=== PATIENT | male | born 1980 | race Caucasian/White ===

== ENCOUNTER 2019-12-16 15:54 | Emergency (ER) | payer OTHER ==
[2019-12-16 16:04] VITALS: BP 158/100
[2019-12-16] MEDS ORDERED: TETANUS/DIPHTHERIA/PERTUSSIS 0.5 ML SYRINGE IM ONE (16:05)
--- NOTE | 2019-12-16 16:17 | ED Physician Documentation ---
History of Present Illness - Stated complaint Stated Complaint: L FOOT PUNCTURE - Chief complaint Chief Complaint: General - History obtained from History obtained from: Patient - History of Present Illness Timing: Yesterday Pain level max: 0 Pain level now: 0 - Additonal information Additional information: Patient was wearing slippers yesterday when he accidentally stepped on a nail. He removed the nail yesterday. No pain. No redness. No swelling. Last tetanus was 2003. Nothing makes it better or worse Review of Systems Constitutional: denies: Fever, Chills Skin: denies: Rash PD PAST MEDICAL HISTORY - Past Medical History Past Medical History: No - Allergies Allergies/Adverse Reactions: Allergies Allergy/AdvReac Type Severity Reaction Status Date / Time No Known Drug Allergies Allergy Verified 12/16/19 16:10 - Social History Does the pt smoke?: No Smoking Status: Never smoker Does the pt drink ETOH?: Yes Does the pt have substance abuse?: No - Immunizations Immunizations are current?: No PD ED PE NORMAL - Vitals Vital signs reviewed: Yes - General General: Alert and oriented X 3, No acute distress - HEENT HEENT: Moist mucous membranes - Derm Derm: Warm and dry - Extremities Extremities: Other (Puncture wound to the plantar aspect of the left foot, near the second MTP joint. Neurovascular intact. No signs of infection.) - Neuro Neuro: Alert and oriented X 3 Results - Vitals Vitals: Vital Signs - 24 hr 12/16/19 15:59 Temperature 36.8 C Heart Rate 100 Respiratory 16 Rate Blood Pressure 158/100 H O2 Saturation 100 Oxygen O2 Source Room air PD MEDICAL DECISION MAKING - ED course Complexity details: considered differential, d/w patient ED course: No evidence of foreign body. Patient states the nail came whole. Tdap given. We did discuss prophylactic antibiotics, patient is comfortable monitoring at home and will return if there is signs of infection. Patient counseled regarding signs and symptoms for which I believe and urgent re-evaluation would be necessary. Patient with good understanding of and agreement to plan and is comfortable going home at this time This document was made in part using voice recognition software. While efforts are made to proofread this document, sound alike and grammatical errors may occur. Departure - Departure Disposition: 01 Home, Self Care Clinical Impression: Puncture wound of plantar aspect of left foot Qualifiers: Encounter type: initial encounter Qualified Code(s): S91.332A - Puncture wound without foreign body, left foot, initial encounter Condition: Good Instructions: ED Wound Puncture General Follow-Up: Your,doctor in 1 week [Other] Comments: Keep the wound clean. Return if you notice redness, swelling or drainage from the wound. You should have a wound check with your doctor later this week to ensure it is healing properly.
== END 2019-12-16 16:22 | disposition home or self-care (01) ==
LOC: ED 15:54
DX: S91.332A Puncture wound without foreign body, left foot, initial encounter (principal); W45.0XXA Nail entering through skin, initial encounter
CPT/HCPCS: 90471; 99282; 99283

== ENCOUNTER 2020-06-20 16:47 | Emergency (ER) | payer OTHER ==
--- NOTE | 2020-06-20 17:01 | ED Physician Documentation ---
PD HPI ABD PAIN - Stated complaint Stated Complaint: ABD PX/ - Chief complaint Chief Complaint: Abd Pain - History obtained from History obtained from: Patient - History of Present Illness Timing - onset: How many days ago (2-3) Timing - duration: Days (2-3) Timing - details: Abrupt onset (just after eating some spicy food.), Still present Quality: Cramping, Aching, Pain Location: Epigastric Radiation: No: Chest, Lower back Improved by: No: Vomiting Worsened by: Eating Associated symptoms: Nausea, Vomiting, Loss of appetite. No: Fever, Hematemesis, Diarrhea, Constipation, Dysuria Similar symptoms before: Has not had sx before Recently seen: Not recently seen Review of Systems Constitutional: denies: Fever, Chills, Myalgias Nose: reports: Rhinorrhea / runny nose. denies: Congestion Throat: denies: Sore throat Respiratory: denies: Cough GI: reports: Abdominal Pain (epigastric area), Nausea, Vomiting (with any attempt at PO intake.) Skin: denies: Rash, Lesions Musculoskeletal: denies: Neck pain, Back pain PD PAST MEDICAL HISTORY - Past Medical History Cardiovascular: None Respiratory: None Neuro: None Endocrine/Autoimmune: None GI: None - Present Medications Home Medications: Ambulatory Orders Medication Instructions Recorded Confirmed Lidocaine Viscous 2% [Xylocaine 5 ml PO Q4H PRN #100 ml 06/20/20 Viscous 2%] Ondansetron Odt [Zofran] 4 mg TL Q6H PRN #15 tablet 06/20/20 - Allergies Allergies/Adverse Reactions: Allergies Allergy/AdvReac Type Severity Reaction Status Date / Time No Known Drug Allergies Allergy Verified 12/16/19 16:10 - Social History Does the pt smoke?: No Smoking Status: Never smoker Does the pt drink ETOH?: Yes Does the pt have substance abuse?: No - Immunizations Immunizations are current?: No PD ED PE NORMAL - Vitals Vital signs reviewed: Yes - General General: Alert and oriented X 3, Well developed/nourished - HEENT HEENT: PERRL (nonicteric) - Neck Neck: Supple, no meningeal sign, No adenopathy - Cardiac Cardiac: RRR, No murmur - Respiratory Respiratory: Clear bilaterally - Abdomen Abdomen: Normal bowel sounds, Soft, Non distended, No organomegaly, Other (tender epigastric area with local guarding. ) - Derm Derm: Normal color, Warm and dry - Extremities Extremities: No tenderness to palpate, Normal ROM s pain, No edema, No calf tenderness / cord - Neuro Neuro: Alert and oriented X 3, No motor deficit, Normal speech Results - Vitals Vitals: Vital Signs - 24 hr 06/20/20 06/20/20 06/20/20 16:52 18:00 18:50 Temperature 36.9 C Heart Rate 110 H 91 90 Respiratory 16 18 18 Rate Blood Pressure 146/96 H 133/98 H 128/97 H O2 Saturation 97 100 100 06/20/20 19:41 Temperature 36.9 C Heart Rate 81 Respiratory 16 Rate Blood Pressure 128/68 O2 Saturation 100 Oxygen O2 Source Room air - Labs Labs: Laboratory Tests 06/20/20 06/20/20 06/20/20 17:14 17:14 17:43 WBC 12.8 H RBC 5.11 Hgb 16.5 Hct 46.5 MCV 91.0 MCH 32.3 H MCHC 35.5 RDW 12.7 Plt Count 332 MPV 9.4 Neut # (Auto) Not Reportable Lymph # (Auto) Not Reportable [place] # (Auto) Not Reportable Eos # (Auto) Not Reportable Baso # (Auto) Not Reportable Absolute Nucleated RBC Not Reportable Total Counted 100 Band Neuts % (Manual) 0 Abnorm Lymph % (Manual) 0 Nucleated RBC % Not Reportable Neutrophils # (Manual) 9.0 H Lymphocytes # (Manual) 2.0 Monocytes # (Manual) 0.1 Eosinophils # (Manual) 1.7 H Basophils # (Manual) 0.0 Differential Comment MANUAL DIFFERENTIAL Manual Slide Review Indicated WBC Morphology NORMAL APPEARANCE Platelet Estimate NORMAL (130-450,000) Platelet Morphology NORMAL APPEARANCE RBC Morph Micro Appear NORMAL APPEARANCE Sodium 139 Potassium 3.8 Chloride 104 Carbon Dioxide 22 Anion Gap 13.0 BUN 12 Creatinine 1.1 Estimated GFR (MDRD) 74 L Glucose 105 H Calcium 10.0 Total Bilirubin 0.6 AST 20 ALT 29 Alkaline Phosphatase 83 Total Protein 7.9 Albumin 4.8 Globulin 3.1 Albumin/Globulin Ratio 1.5 Lipase 27 Urine Color YELLOW Urine Clarity CLEAR Urine pH 8.0 H Ur Specific [place] 1.020 Urine Protein NEGATIVE Urine Glucose (UA) NEGATIVE Urine Ketones NEGATIVE Urine Occult Blood NEGATIVE Urine Nitrite NEGATIVE Urine Bilirubin NEGATIVE Urine Urobilinogen 0.2 (NORMAL) Ur Leukocyte Esterase NEGATIVE Ur Microscopic Review NOT INDICATED Urine Culture Comments NOT INDICATED - Rads (name of study) abd CT with oral contrast Radiology: Prelim report reviewed (no acute process. Contrast goes through to small bowel. ), See rad report PD MEDICAL DECISION MAKING - ED course Complexity details: reviewed results, re-evaluated patient (able to take PO better and not vomiting. minimal nausea. ), considered differential (consider esophageal FB with onset with eating and vomiting of any attempted PO. Also consider gastritis/ulcer, or gastric outlet obstruction, SBO, pancreatitis, etc. ), d/w patient Departure - Departure Disposition: Home, Self Care Clinical Impression: Nausea and vomiting Qualifiers: Vomiting type: unspecified Vomiting Intractability: non-intractable Qualified Code(s): R11.2 - Nausea with vomiting, unspecified Acute gastritis Qualifiers: Gastritis type: unspecified gastritis Gastritis bleeding: without bleeding Qualified Code(s): K29.00 - Acute gastritis without bleeding Condition: Stable Record reviewed to determine appropriate education?: Yes Instructions: ED Nausea Vomiting Follow-Up: GLADYS CHAIREZ, MSN, PH[employer] ENGRAVER [Primary Care Provider] - Prescriptions: Lidocaine Viscous 2% [Xylocaine Viscous 2%] 5 ml PO Q4H PRN #100 ml PRN Reason: Pain Ondansetron Odt [Zofran] 4 mg TL Q6H PRN #15 tablet PRN Reason: Nausea / Vomiting Comments: Small frequent fluids and bland food. Avoid caffeine, alcohol, NSAIDs, spicy food for a week or so. Use Tylenol if needed for pains. Continue your Pepcid [id number] medicine. Use this twice daily. Add ondansetron if needed for nausea and vomiting. If needed for stomach pains, you can use antacid such as Maalox or Mylanta and if needed add in some lidocaine with it. Your CT scan and blood tests do not show other significant problems. I presume you have an irritated stomach (gastritis). This should improve with the above measures over the next couple of days. Recheck if not better in that timeframe and return sooner if worse. Discharge Date/Time: 06/20/20 19:41
[2020-06-20] MEDS ORDERED: SODIUM CHLORIDE 0.9% 1,000 ML IV STA (17:23)
[2020-06-20] MEDS ORDERED: FAMOTIDINE 20 MG/2 ML SYRINGE IVP STA (17:23)
[2020-06-20] MEDS ORDERED: ONDANSETRON 4 MG/2 ML VIAL IVP STA (17:23)
[2020-06-20 17:34] LABS: HGB - HEMOGLOBIN 16.5 g/dL (14.0-18.0); RED CELL DISTRIBUTION WIDTH 12.7 % (12.0-15.0)
[2020-06-20 17:38] LABS: ALBUMIN 4.8 g/dL (3.2-5.5); ALBUMIN/GLOBULIN RATIO 1.5 (1.0-2.2); BILIRUBIN,TOTAL 0.6 mg/dL (0.2-1.0); CREATININE 1.1 mg/dL (0.6-1.2); TOTAL PROTEIN 7.9 g/dL (6.7-8.2)
[2020-06-20] MEDS ORDERED: IOVERSOL 320 100 ML VIAL IVP ONE ×2 (17:40→19:30)
[2020-06-20] MEDS ORDERED: IOVERSOL 320 50 ML VIAL ONE (17:40)
[2020-06-20 17:48] LABS: BILIRUBIN,URINE NEGATIVE (NEGATIVE); GLUCOSE, URINE (UA) NEGATIVE (NEGATIVE); KETONES,URINE (UA) NEGATIVE (NEGATIVE); LEUKOCYTE ESTERASE, URINE NEGATIVE (NEGATIVE); NITRITE,URINE NEGATIVE (NEGATIVE); OCCULT BLOOD,URINE NEGATIVE (NEGATIVE); PROTEIN,URINE NEGATIVE (NEGATIVE); UROBILINOGEN,URINE 0.2 (NORMAL) E.U./dL (NORMAL)
[2020-06-20 17:50] LABS: BASOPHILS % (AUTO) 0.8 %; EOSINOPHILS % (AUTO) 9.2 %; LYMPHOCYTES % (AUTO) 17.9 %; MEAN CORPUSCULAR HEMOGLOBIN 32.3 pg (27.0-31.0); MEAN CORPUSCULAR HGB CONC 35.5 g/dL (32.0-36.0); MEAN PLATELET VOLUME 9.4 fL (7.4-11.4); MONOCYTES % (AUTO) 5.1 %; NEUTROPHILS % (AUTO) 66.5 %; PLT - PLATELET COUNT 332 10^3/uL (130-450); RED BLOOD COUNT 5.11 10^6/uL (4.70-6.10); WHITE BLOOD COUNT 12.8 x10^3/uL (4.8-10.8)
[2020-06-20 17:52] LABS: CLARITY,URINE CLEAR (CLEAR)
[2020-06-20 17:54] LABS: ABNORMAL LYMPHS % (MANUAL) 0 %; BAND NEUTROPHILS % (MANUAL) 0 %
[2020-06-20 18:13] LABS: DIFFERENTIAL COMMENT MANUAL DIFFERENTIAL; EOSINOPHILS # (MANUAL) 1.7 10^3/uL (0-0.7); LYMPHOCYTES % (MANUAL) 16 %; MONOCYTES # (MANUAL) 0.1 10^3/uL (0.0-1.0); PLATELET ESTIMATE, MANUAL NORMAL (130-450,000) (NORMAL); PLATELET MORPHOLOGY NORMAL APPEARANCE (NORMAL); RBC MORPHOLOGY (MULTIPLE) NORMAL APPEARANCE (NORMAL)
--- NOTE | 2020-06-20 19:04 | CT Report ---
PROCEDURE: Abdomen/Pelvis W INDICATIONS: upper abd pain and vomiting with eating CONTRAST: IV CONTRAST: Optiray 320 ml: 100 PO CONTRAST: Optiray 320 ml50 TECHNIQUE: After the administration of oral and IV contrast, 5 mm thick sections acquired from the diaphragms to the symphysis. 5 mm thick coronal and sagittal reformats were acquired. For radiation dose reducti on, the following was used: automated exposure control, adjustment of mA and/or kV according to janna ent size. COMPARISON: None. FINDINGS: Image quality: Excellent. ABDOMEN: Lung bases: Lung bases are clear. Heart size is normal. Solid organs: Liver is enlarged with steatosis. The spleen is normal in size and enhancement. Gallb ladder is unremarkable Biliary system is non dilated. Pancreas enhances normally. No adrenal nodul es. Kidneys demonstrate normal size and enhancement, without hydronephrosis. Peritoneum and bowel: Bowel loops demonstrate normal areas of fluid-filled small bowel loops.. No f ree fluid or air. Nodes and vessels: No retroperitoneal or mesenteric adenopathy by size criteria. Aorta and inferior vena cava are normal in size. Miscellaneous: No ventral hernias. PELVIS: Genitourinary: Bladder wall thickness is normal. Miscellaneous: Bilateral fat-containing inguinal hernias. Bones: No suspicious bony lesions. No vertebral body compression fractures. IMPRESSION: 1. Minimal appearance of scattered fluid-filled small bowel loops in a nonspecific pattern. This coul d be secondary to vomiting. No gross obstruction is identified. 2. Hepatomegaly with steatosis. Reviewed by: Laurence Adorno MD on 06/20/2020 7:02 PM PST Approved by: Laurence Adorno MD on 06/20/2020 7:02 PM PST Station ID: [id number]
[2020-06-20] MEDS ORDERED: LIDOCAINE VISCOUS 2% 15 ML UDC MM STA (19:22)
[2020-06-20] MEDS ORDERED: MAG HYDROX/AL HYDROX/SIMETH 30 ML UDC PO STA (19:22)
[2020-06-20] MEDS ORDERED: ACETAMINOPHEN 325 MG TABLET PO STA (19:24)
[2020-06-20 19:43] VITALS: BP 128/68
== END 2020-06-20 19:41 | disposition home or self-care (01) ==
LOC: ED 16:47
DX: K29.00 Acute gastritis without bleeding (principal); R11.2 Nausea with vomiting, unspecified
CPT/HCPCS: 36415; 74177; 80053; 81003; 83690; 85025; 96374; 99284; A9270; Q9967; 81001; 87086

== ENCOUNTER 2020-12-20 19:48 | Emergency (ER) | payer OTHER ==
[2020-12-20 20:45] LABS: BASOPHILS % (AUTO) 0.9 %; EOSINOPHILS % (AUTO) 16.9 %; HCT - HEMATOCRIT 46.3 % (42.0-52.0); HGB - HEMOGLOBIN 15.9 g/dL (14.0-18.0); LYMPHOCYTES % (AUTO) 22.4 %; MEAN CORPUSCULAR HEMOGLOBIN 31.2 pg (27.0-31.0); MEAN CORPUSCULAR HGB CONC 34.3 g/dL (32.0-36.0); MEAN CORPUSCULAR VOLUME 90.8 fL (80.0-94.0); MEAN PLATELET VOLUME 9.4 fL (7.4-11.4); NEUTROPHILS % (AUTO) 54.5 %; PLT - PLATELET COUNT 309 10^3/uL (130-450); RED CELL DISTRIBUTION WIDTH 12.3 % (12.0-15.0); WHITE BLOOD COUNT 9.2 x10^3/uL (4.8-10.8)
[2020-12-20 20:53] LABS: ABNORMAL LYMPHS % (MANUAL) 0 %
[2020-12-20 20:54] LABS: ALBUMIN 4.9 g/dL (3.2-5.5); ALBUMIN/GLOBULIN RATIO 1.9 (1.0-2.2); BILIRUBIN,TOTAL 0.5 mg/dL (0.2-1.0); CALCIUM 10.1 mg/dL (8.5-10.3); CREATININE 1.1 mg/dL (0.6-1.2); POTASSIUM 3.8 mmol/L (3.5-5.0); TOTAL PROTEIN 7.5 g/dL (6.7-8.2)
--- NOTE | 2020-12-20 21:07 | XRAY Report ---
PROCEDURE: Chest 1 View X-Ray INDICATIONS: Chest Pain TECHNIQUE: One view of the chest was acquired. COMPARISON: None FINDINGS: Surgical changes and devices: None. Lungs and pleura: No pleural effusions or pneumothorax. Lungs are clear. Mediastinum: Mediastinal contours appear normal. Heart size is normal. Bones and chest wall: No suspicious bony lesions. Overlying soft tissues appear unremarkable. IMPRESSION: No acute process. Reviewed by: Sherman Swain MD on 12/20/2020 9:06 PM PDT Approved by: Sherman Swain MD on 12/20/2020 9:06 PM PDT Station ID: [id number]
[2020-12-20 21:20] LABS: BAND NEUTROPHILS % (MANUAL) 1 %; EOSINOPHILS # (MANUAL) 1.4 10^3/uL (0-0.7); LYMPHOCYTES # (MANUAL) 3.1 10^3/uL (1.5-3.5); LYMPHOCYTES % (MANUAL) 34 %; MONOCYTES # (MANUAL) 0.3 10^3/uL (0.0-1.0); NEUTROPHILS # (MANUAL) 4.4 10^3/uL (1.5-6.6)
[2020-12-20 21:21] LABS: DIFFERENTIAL COMMENT MANUAL DIFFERENTIAL; PLATELET ESTIMATE, MANUAL NORMAL (130-450,000) (NORMAL); PLATELET MORPHOLOGY NORMAL APPEARANCE (NORMAL); RBC MORPHOLOGY (MULTIPLE) NORMAL APPEARANCE (NORMAL)
--- NOTE | 2020-12-20 21:43 | ED Physician Documentation ---
History of Present Illness - Stated complaint Stated Complaint: CP - Chief complaint Chief Complaint: Cardiac - Additonal information Additional information: 40-year-old male presents the emergency department for evaluation of chest pain. He reports that this morning he was in a very heated argument regarding his current living situation in which his house is not able to be lived in and he is unable to find a hotel. He developed brief episode of chest pain after that encounter. Then this afternoon he had to take his cat to the vet and found that the cat had kidney disease and may need to be put down. This gentleman endorses feeling quite a bit of chest pain and pressure with the stressors. Chest pain feels somewhat pressure-like but does not radiate. No associated nausea or vomiting. He does smoke but does not have a history of hypertension or diabetes. He is mostly worried he could be having a myocardial infarction. Review of Systems Constitutional: denies: Fever, Chills Eyes: reports: Reviewed and negative Ears: reports: Reviewed and negative Nose: reports: Reviewed and negative Throat: reports: Reviewed and negative Cardiac: reports: Chest pain / pressure. denies: Palpitations, Pedal edema, Calf pain Respiratory: denies: Dyspnea, Cough GI: denies: Abdominal Pain, Nausea, Vomiting : denies: Dysuria, Frequency Skin: denies: Rash, Lesions Musculoskeletal: denies: Neck pain, Back pain, Extremity pain Neurologic: denies: Generalized weakness, Focal weakness, Numbness, Difficulty speaking, Syncope, Seizure, Headache, Head injury, LOC PD PAST MEDICAL HISTORY - Past Medical History Past Medical History: Yes Cardiovascular: None Respiratory: None Neuro: None Endocrine/Autoimmune: None GI: GERD - Past Surgical History Past Surgical History: Yes General: Appendectomy - Present Medications Home Medications: Ambulatory Orders Medication Instructions Recorded Confirmed hydrOXYzine HCL [Hydroxyzine HCl] 25 mg PO BID PRN #20 tablet 12/20/20 - Allergies Allergies/Adverse Reactions: Allergies Allergy/AdvReac Type Severity Reaction Status Date / Time Sulfa (Sulfonamide Allergy Unknown Verified 12/20/20 20:02 Antibiotics) - Social History Does the pt smoke?: No Smoking Status: Never smoker Does the pt drink ETOH?: Yes Does the pt have substance abuse?: No - Immunizations Immunizations are current?: No - POLST Patient has POLST: No PD ED PE EXPANDED - General General: Alert, No acute distress, Well developed/nourished - Neck Neck: Supple w/out meningeal sx. No: Adenopathy - Cardiac Cardiac: Regular Rate, Radial strong equal, Cap refill < 2 sec. No: Murmur Present - Respiratory Respiratory: Clear to ausultation pinky. No: Distress, Labored - Abdomen Abdomen: Normal Bowel sounds. No: Tender to palpation - Derm Derm: Normal color, Warm and dry. No: Petecchiae, Purpura - Extremities Extremities: Normal. No: Deformity, Tenderness - Neuro Neuro: Alert and Oriented X 3, CNII-XII intact - GCS Eye Opening: Spontaneous Motor: Obeys Commands Verbal: Oriented Total: 15 Results - Vitals Vitals: Vital Signs - 24 hr 12/20/20 12/20/20 12/20/20 19:59 20:47 21:16 Temperature 36.0 C L Heart Rate 109 H 99 85 Respiratory 16 11 L 14 Rate Blood Pressure 161/103 H 143/98 H 147/99 H O2 Saturation 98 96 98 Oxygen O2 Source Room air - EKG (time done) 1952 Rate: Rate (enter#) (105) Rhythm: Sinus tachycardia [place]: Normal Intervals: Normal [place] QRS: Normal Ischemia: Normal ST segments Compare to prior EKG: Old EKG unavailable Computer interpretation: Agree with computer - Labs Labs: Laboratory Tests 12/20/20 12/20/20 12/20/20 20:32 20:32 20:32 WBC 9.2 RBC 5.10 Hgb 15.9 Hct 46.3 MCV 90.8 MCH 31.2 H MCHC 34.3 RDW 12.3 Plt Count 309 MPV 9.4 Neut # (Auto) Not Reportable Lymph # (Auto) Not Reportable [place] # (Auto) Not Reportable Eos # (Auto) Not Reportable Baso # (Auto) Not Reportable Absolute Nucleated RBC Not Reportable Total Counted 100 Band Neuts % (Manual) 1 Abnorm Lymph % (Manual) 0 Nucleated RBC % Not Reportable Neutrophils # (Manual) 4.4 Lymphocytes # (Manual) 3.1 Monocytes # (Manual) 0.3 Eosinophils # (Manual) 1.4 H Basophils # (Manual) 0.0 Differential Comment MANUAL DIFFERENTIAL Platelet Estimate NORMAL (130-450,000) Platelet Morphology NORMAL APPEARANCE RBC Morph Micro Appear NORMAL APPEARANCE Sodium 139 Potassium 3.8 Chloride 105 Carbon Dioxide 24 Anion Gap 10.0 BUN 14 Creatinine 1.1 Estimated GFR (MDRD) 74 L Glucose 107 H Calcium 10.1 Total Bilirubin 0.5 AST 16 ALT 21 Alkaline Phosphatase 70 Troponin I High Sens 2.8 Total Protein 7.5 Albumin 4.9 Globulin 2.6 Albumin/Globulin Ratio 1.9 Lipase 27 - Rads (name of study) CXR Radiology: Final report received (No acute cardiopulmonary process) PD MEDICAL DECISION MAKING - ED course Complexity details: reviewed results, re-evaluated patient, d/w patient ED course: 40-year-old male presents emergency department for evaluation of chest pain that began this morning after heated argument and returned this afternoon when taking his cat to the vet. He does not have any associated nausea vomiting or radiation of chest pain to the arm or jaw. Initial screening EKG is nonischemic. High-sensitivity troponin is negative. He does have a modest blood pressure elevation here in the emergency department but otherwise screening labs are unremarkable. His heart score is 1. I did spend some time at the bedside with patient discussing his chest pain presentation in the setting of multiple stressors. Given his age and tobacco history he may benefit from an outpatient stress test and echocardiogram. He reports he will follow-up with his primary care doctor for this. I encouraged tobacco cessation. He does have multiple ongoing stressors I will prescribe a limited amount of hydroxyzine to help with this. Emergent return precautions were discussed Departure - Departure Disposition: 01 Home, Self Care Clinical Impression: Stress and adjustment reaction Chest pain Qualifiers: Chest pain type: unspecified Qualified Code(s): R07.9 - Chest pain, unspecified Condition: Stable Record reviewed to determine appropriate education?: Yes Instructions: ED Chest Pain Atypical Unkn Cause Prescriptions: hydrOXYzine HCL [Hydroxyzine HCl] 25 mg PO BID PRN #20 tablet PRN Reason: Anxiety Comments: You were seen in the emergency department today for chest pain. This follows multiple recurrent and ongoing stressful events. As we discussed your chest x- ray EKG and screening labs are all without any worrisome findings. I suspect that the chest discomfort you had was a result of your stress. However as you do smoke you would benefit from outpatient referral to a lay midwife for stress test and echocardiogram. I have prescribed a medication called hydroxyzine that many people used to help with stress and anxiety. Use this cautiously at first it may make you sleepy and unfit to drive. At any point you develop worsening chest pain, chest pressure, have associated nausea or any fainting episodes please return immediately to the emergency department.
[2020-12-20 22:13] VITALS: BP 134/101
== END 2020-12-20 21:55 | disposition home or self-care (01) ==
LOC: ED 19:48
DX: R07.9 Chest pain, unspecified (principal); F43.20 Adjustment disorder, unspecified; K21.9 Gastro-esophageal reflux disease without esophagitis
CPT/HCPCS: 36415; 80053; 83690; 84484; 85025; 93005; 99284